=== PATIENT | female | born 1995 | race Caucasian/White ===

== ENCOUNTER 2017-09-07 17:07 | Emergency (ER) | payer BC, OTHER ==
--- NOTE | 2017-09-07 17:44 | EDPHY ---
H & P Time Seen by Provider: 09/07/17 17:21 HPI/ROS: CHIEF COMPLAINT: Left labia minora swelling HISTORY OF PRESENT ILLNESS: 22-year-old immunocompetent female states that few days ago she had symptoms consistent with full vaginal candidiasis. She typically responds well to oral Diflucan. Her father who is a physician prescribed Diflucan 150 mg which she took yesterday at 3:00 p.m. and notes that itching and symptoms seem to resolve. She engaged in sexual intercourse last evening which she describes as not particularly traumatic or unusually rough. She used Vaseline lubricant during sexual intercourse. PRIMARY CARE PROVIDER: REVIEW OF SYSTEMS: A ten point review of systems was performed and is negative with the exception of the items mentioned in the HPI PHYSICAL EXAM (Prior to examination, patient consented to physical exam, hands were washed and my usual and customary physical exam procedures followed) 1) GENERAL: Well-developed, well-nourished, alert and oriented. Appears to be in no acute distress. Smiling 2) HEAD: Normocephalic 3) HEENT: sclera anicteric 4) LUNGS: Breathing comfortably. 5) (with nurse Kindra at bedside): The left labia minora is edematous, tender. Normal coloration. Normal temperature. No lesions are no vesicles. There is no evidence of Bartholin cyst. Evidence of herpes genitalis. No evidence of cellulitis or Chadwick's gangrene. The labia majora is nontender. Smoking Status: Never smoked Constitutional: Initial Vital Signs Temperature (C) 36.4 C 09/07/17 17:12 Heart Rate 92 09/07/17 17:12 Respiratory Rate 16 09/07/17 17:12 Blood Pressure 129/91 H 09/07/17 17:12 O2 Sat (%) 97 09/07/17 17:12 O2 Delivery Mode Room Air Allergies/Adverse Reactions: Sulfa (Sulfonamide Antibiotics) Allergy (Verified 12/28/12 15:09) Home Medications: Medication Instructions Recorded Bcp 09/07/17 Fluconazole 09/07/17 Hydrocortisone 1% [Hydrocortisone 1 suzanne TOP BID #15 g 09/07/17 1% Cream] VYVANSE 09/07/17 MDM/Departure - [facility] ED Course/Re-evaluation: The patient has no signs of Bartholin cyst, no signs of cellulitis or infection to this area, no signs of yeast vaginitis. We discussed possible etiologies for her acute left labia minora edema and pain including, but not limited to, contact dermatitis, possibly from Vaseline lubrication; trauma from sexual activity. At this time I do not think that emergent OBGYN consultation is indicated. I have recommended pelvic rest, cold packs, topical steroids and close follow-up with OBGYN in the next 1-2 days and provided this information. She feels comfortable with this plan. All questions and concerns addressed by myself. Care of patient under supervision of secondary supervising physician Dr Lau . - Depart Disposition: Home, Routine, Self-Care Clinical Impression: Left labia minora edema Condition: Good Instructions: Hydrocortisone (On the skin), Contact Dermatitis (ED) Additional Instructions: Return to the ER if you develop worsening symptoms, if you develop foul smell, inability to ambulate or any other symptoms that concern you. Prescriptions: Hydrocortisone 1% [Hydrocortisone 1% Cream] 1 suzanne TOP BID #15 g Referrals: Gorge Bush MD [Medical Doctor] - 1-2 days without fail
[2017-09-07 18:01] VITALS: BP 125/78
== END 2017-09-07 18:01 | disposition home or self-care (01) ==
DX: N90.89 Other specified noninflammatory disorders of vulva and perineum (principal)